=== PATIENT | male | born 1965 | race Two or more races ===

== ENCOUNTER 2017-12-30 08:37 | Outpatient (RCR) | payer BC, SELFPAY | END 2018-01-30 13:06 | disposition home or self-care (01) | LOC: PT 08:37 | PROVIDERS: PCP Internal Medicine; Visit Provider Internal Medicine Cardiovascular Disease | DX: I25.10 Atherosclerotic heart disease of native coronary artery without angina pectoris (principal) | CPT/HCPCS: 93798 ==

== ENCOUNTER → 2018-02-10 20:12 | Outpatient (CLI) | payer OTHER, BC, SELFPAY | PROVIDERS: PCP Family Medicine; Visit Provider Nurse Practitioner Family | DX: G47.33 Obstructive sleep apnea (adult) (pediatric) (principal) | CPT/HCPCS: 95810 ==

== ENCOUNTER 2020-03-23 11:42 | Emergency (ER) | payer BC, SELFPAY ==
[2020-03-23 12:08] VITALS: BP 168/99; PULSE 62; RESP 14; TEMP 36.8; O2SAT 97; BMI 33.5
--- NOTE | 2020-03-23 12:21 | HMH.EDUTC ---
[facility] [place] Disposition Clinical Impression: Otitis media Qualifiers: Otitis media type: unspecified Laterality: right Qualified Code(s): H66.91 - Otitis media, unspecified, right ear Disposition: Home, Self-Care Condition on Discharge: Good Instructions: Middle Ear Infections (Alternative Therapy), Middle Ear Infection, Amoxicillin Additional Instructions: *Monitor Temp, Over the counter Motrin or Tylenol as directed/as needed Tylenol every 4 hours and Motrin every 6 hours (as long as your family doctor has told you that you can take it) for fever or pain. and straight to ER if unable to lower temp less than 101.0 after medication given *Warm salt water gargles may help to soothe the throat *Throat Lozenges *Warm fluids like tea with honey may help to soothe the throat *Sleep elevated *Humidifier/Vaporizer Follow up IMMEDIATELY for new or worsening symptoms or no Noticeable improvement over the next 48-72 hours. 911 for difficulty breathing or swallowing Prescriptions: Amoxicillin [Amoxicillin 875MG Tab] 875 mg PO Q12H #20 tab Transmission Status: Pending to [facility] Referrals: Provider,Referral, [Primary Care Provider] - Forms: Work/School Release Time of Disposition: 12:24 Medical Decision Making - Aries Inquiry Pt receiving controlled substance: No Aries was queried for this patient: No Vital Signs: 03/23/20 12:08 Temperature 98.3 F Temperature Source Oral Pulse Rate [Right Brachial] 62 Respiratory Rate 14 Blood Pressure [Right Arm] 168/99 H Blood Pressure Mean [Right Arm] 122 Blood Pressure Source [Right Arm] Automatic Cuff Blood Pressure Position [Right Arm] Sitting 02 Sat by Pulse Oximetry 97 Oxygen Delivery Method Room Air [facility] [place] HPI - General Stated complaint: ear pain Time Seen by Provider: 03/23/20 12:21 Mode of Arrival: Ambulatory Source of Information: Patient Limitations: No Limitations Description of Symptoms (Recalled from Triage Doc. by RN): PATIENT C/O PAIN AND ITCHING IN RIGHT EAR THAT STARTED YESTERDAY HEENT Symptoms (Recalled from RN notes): Yes Resp Symptoms (Recalled from RN notes): No Skin Symptoms (Recalled from RN notes): No MS Symptoms (Recalled from RN notes): No Functional Status (Recalled from RN notes): wnl - History of Present Illness Provider Complaint: Patient states that he has been having pain and pressure in his right ear that has continued to get worse over the last week now having throbbing like pain in his right ear and hurts when he moves his mouth - Related Data Home Medications Medication Instructions Recorded Confirmed aspirin 325 mg tablet,delayed 325 mg PO DAILY 30 Days #30 11/13/17 03/23/20 release atorvastatin 80 mg tablet 80 mg PO DAILY 30 Days #30 tab 11/13/17 03/23/20 lisinopril 20 mg tablet 20 mg PO DAILY 30 Days #30 tab 11/13/17 03/23/20 metoprolol tartrate 50 mg tablet 50 mg PO DAILY 90 Days #180 tab 03/31/18 03/23/20 Amlodipine Besylate [Amlodipine 5 mg PO DAILY 03/23/20 03/23/20 5mg tab] Previous Rx's Medication Instructions Recorded Amoxicillin [Amoxicillin 875MG 875 mg PO Q12H #20 tab 03/23/20 Tab] Allergies Allergy/AdvReac Type Severity Reaction Status Date / Time No Known Allergies Allergy Verified 03/23/20 12:15 - Worker's Comp Is this a Worker's Comp case?: No [facility] History - Hepatitis A Screen Drug use history?: No High risk sexual behaviors?: No History of sexually transmitted infection?: No Currently employed?: No Childcare worker?: No Do you have indoor plumbing?: Yes Do you have electricity?: Yes Attestation statement:: This patient has been screened for Hepatitis A risk factors. I have reviewed the patient's past medical history: Yes Medical History: Reports:: Coronary Artery Disease, Hyperlipidemia, Hypertension Other Medical History: Reports: Other Comment: ZEB Other Surgeries: Yes: CABG - Social History Smoking Status: Former smoker Tobacco Type: cigarett
[2020-03-23 12:24] VITALS: BP 168/99; PULSE 62; RESP 14; TEMP 36.8; O2SAT 97
== END 2020-03-23 12:28 | disposition home or self-care (01) ==
PROVIDERS: Emergency Provider Nurse Practitioner
DX: H66.91 Otitis media, unspecified, right ear (principal); I10 Essential (primary) hypertension; E78.5 Hyperlipidemia, unspecified; I25.10 Atherosclerotic heart disease of native coronary artery without angina pectoris; Z87.891 Personal history of nicotine dependence; Z79.899 Other long term (current) drug therapy
CPT/HCPCS: 99201

== ENCOUNTER 2021-05-03 09:50 | Emergency (ER) | payer BC, SELFPAY ==
[2021-05-03 11:00] VITALS: BP 143/99; PULSE 95; RESP 19; TEMP 37; O2SAT 97; BMI 32.9
--- NOTE | 2021-05-03 11:34 | HMH.EDUTC ---
[facility] [place] Clinical Impression: Strep throat Disposition: Home, Self-Care Condition on Discharge: Good Instructions: DI for Strep Throat, Strep Throat, Acute Bronchitis, Cefdinir Additional Instructions: Monitor Temp, Over the counter Motrin or Tylenol as directed/as needed Tylenol every 4 hours and Motrin every 6 hours (as long as your family doctor has told you that you can take it) for fever or pain. and straight to ER if unable to lower temp less than 101.0 after medication given *Warm salt water gargles may help to soothe the throat *Throat Lozenges *Warm fluids like tea with honey may help to soothe the throat *Sleep elevated *Humidifier/Vaporizer *If you did not take Penicillin shot or was unable to, start taking antibiotic immediately and make sure that you take it for the FULL length of time although you should start to feel better in 24-48 hours *change toothbrush and toothpaste 24-48 hours after starting to take antibiotics so you do not reinfect yourself Monitor Temp. Tylenol and/or Ibuprofen as needed. ER if fever is no less than 101 despite alternating Tylenol and Ibuprofen * Encourage fluids, water, Gatorade, powerade, pedialyte if /toddler/or child *Cold fluids, popsicles and ice cream may feel good on his throat Follow up IMMEDIATELY for new or worsening symptoms or no Noticeable improvement over the next 48-72 hours. 911 for difficulty breathing or swallowing Prescriptions: predniSONE [Deltasone 10mg tablet] 10 mg PO BID 5 Days #10 tab Transmission Status: Pending to [facility] #[id number] Fluticasone Propionate [Flonase 50mcg nasal spray 16gm] 1 spr NS DAILY #1 each Transmission Status: Pending to [facility] #[id number] Cefdinir [Omnicef 300mg Capsule] 300 mg PO BID #20 cap Transmission Status: Pending to [facility] #[id number] Referrals: Provider,Referral, MD [Primary Care Provider] - As needed Forms: Work/School Release Time of Disposition: 11:51 Medical Decision Making - Aries Inquiry Pt receiving controlled substance: No Aries was queried for this patient: No Vital Signs: 05/03/21 11:00 Temperature 98.6 F Temperature Source Oral Pulse Rate [Left Brachial] 95 H Respiratory Rate 19 Blood Pressure [Left Arm] 143/99 H Blood Pressure Mean [Left Arm] 113 Blood Pressure Source [Left Arm] Automatic Cuff Blood Pressure Position [Left Arm] Sitting 02 Sat by Pulse Oximetry 97 Oxygen Delivery Method Room Air - Lab Data Lab results reviewed: Yes: I reviewed the patient's lab results. Lab Results 05/03/21 11:29: Strep Scn Rapid Clinic Positive A [facility] [place] - General Stated complaint: sore throat, cough, congestion, body aches Time Seen by Provider: 05/03/21 11:34 Mode of Arrival: Ambulatory Source of Information: Patient Limitations: No Limitations Description of Symptoms (Recalled from Triage Doc. by RN): PATIENT C/O CONGESTION, BODY ACHES, RUNNY NOSE, AND PRODUCTIVE COUGH WITH LUNG PAIN HEENT Symptoms (Recalled from RN notes): Yes Resp Symptoms (Recalled from RN notes): Yes Skin Symptoms (Recalled from RN notes): No MS Symptoms (Recalled from RN notes): No Functional Status (Recalled from RN notes): WNL - History of Present Illness Provider Complaint: Patient states that he has been having some sinus congestion and pain with drianage in the back of his throat State that he has had some pressure behind his eyes and at times he will cough and every now and then he will cough up some whitish colored mucous States that he felt a little feverish yesterday but wasnt having a temp so today when he was still not feeling well he came in - Related Data Home Medications Medication Instructions Recorded Confirmed aspirin 325 mg tablet,delayed 325 mg PO DAILY 30 Days #30 11/13/17 03/23/20 release atorvastatin 80 mg tablet 80 mg PO DAILY 30 Days #30 tab 11/13/17 03/23/20 lisinopril 20 mg tablet 20 mg PO DAILY 30 Days #30 tab 11/13/17 03/23/20 metoprol
[2021-05-03 11:43] LABS: UTC Strep Screen (Rapid) Positive (Negative)
[2021-05-03 11:47] VITALS: BP 143/99; PULSE 95; RESP 19; TEMP 37; O2SAT 97
== END 2021-05-03 11:58 | disposition home or self-care (01) ==
PROVIDERS: Emergency Provider Nurse Practitioner
DX: J02.0 Streptococcal pharyngitis (principal); I10 Essential (primary) hypertension; E78.5 Hyperlipidemia, unspecified
CPT/HCPCS: 87880; 99202; G0463

== ENCOUNTER 2021-08-27 10:44 | Emergency (ER) | payer BC, SELFPAY ==
[2021-08-27 12:45] VITALS: BP 141/86; PULSE 76; RESP 18; TEMP 37; O2SAT 99; BMI 29.0
[2021-08-27 12:58] VITALS: BP 141/86; PULSE 76; RESP 18; TEMP 37; O2SAT 99
--- NOTE | 2021-08-27 13:10 | HMH.EDUTC ---
[facility] [place] Clinical Impression: Otitis media Qualifiers: Otitis media type: suppurative Chronicity: acute Laterality: bilateral Recurrence: non-recurrent Spontaneous tympanic membrane rupture: without spontaneous rupture Qualified Code(s): H66.003 - Acute suppurative otitis media without spontaneous rupture of ear drum, bilateral Disposition: Home, Self-Care Condition on Discharge: Good Instructions: Middle Ear Infection Additional Instructions: Drink plenty of fluids. Take tylenol or ibuprofen for pain or fever. Take the medications as directed. Follow up with your regular doctor. GO TO THE ER FOR ANY WORSENING SYMPTOMS Prescriptions: Amoxicillin/Potassium Clav [Amox-Clav 875-125 mg Tablet] 1 tab PO BID #20 tab Transmission Status: Pending to [facility] #[id number] methylPREDNISolone [Medrol] 4 mg PO DIRECTED 6 Days #21 packet Transmission Status: Pending to [facility] #[id number] Referrals: Jarrett Espino JR, MD [Primary Care Provider] - Forms: Work/School Release Time of Disposition: 13:32 Medical Decision Making - Medical Records Medical records reviewed: No: I reviewed the patient's medical records. - Aries Inquiry Pt receiving controlled substance: No Vital Signs: 08/27/21 12:45 08/27/21 12:58 Temperature 98.6 F 98.6 F Temperature Source Oral Pulse Rate 76 Pulse Rate [Right Brachial] 76 Respiratory Rate 18 18 Blood Pressure 141/86 H Blood Pressure [Right Arm] 141/86 H Blood Pressure Mean [Right Arm] 104 Blood Pressure Source [Right Arm] Automatic Cuff Blood Pressure Position [Right Arm] Sitting 02 Sat by Pulse Oximetry 99 Oxygen Delivery Method Room Air - Lab Data Lab results reviewed: No: I reviewed the patient's lab results. [facility] [place]PI - General Stated complaint: right ear pain Time Seen by Provider: 08/27/21 13:14 Mode of Arrival: Ambulatory Source of Information: Patient Limitations: No Limitations Description of Symptoms (Recalled from Triage Doc. by RN): PATIENT C/O RIGHT EAR PAIN SINCE THIS MORNING HEENT Symptoms (Recalled from RN notes): Yes Resp Symptoms (Recalled from RN notes): No Skin Symptoms (Recalled from RN notes): No MS Symptoms (Recalled from RN notes): No Functional Status (Recalled from RN notes): WNL - History of Present Illness Provider Complaint: He c/o bilateral ear pain (left worse than right) for the past 2 days. He gets ear infections and sinus infections frequently this time of year. He refuses a covid-19 test or a strep test. - Related Data Home Medications Medication Instructions Recorded Confirmed aspirin 325 mg tablet,delayed 325 mg PO DAILY 30 Days #30 11/13/17 08/27/21 release atorvastatin 80 mg tablet 80 mg PO DAILY 30 Days #30 tab 11/13/17 08/27/21 lisinopril 20 mg tablet 20 mg PO DAILY 30 Days #30 tab 11/13/17 08/27/21 metoprolol tartrate 50 mg tablet 50 mg PO DAILY 90 Days #180 tab 03/31/18 08/27/21 Previous Rx's Medication Instructions Recorded Amoxicillin/Potassium Clav 1 tab PO BID #20 tab 08/27/21 [Amox-Clav 875-125 mg Tablet] methylPREDNISolone [Medrol] 4 mg PO DIRECTED 6 Days #21 08/27/21 packet Allergies Allergy/AdvReac Type Severity Reaction Status Date / Time No Known Allergies Allergy Verified 03/23/20 12:15 - Worker's Comp Is this a Worker's Comp case?: No [facility] History - Hepatitis A Screen Drug use history?: No High risk sexual behaviors?: No History of sexually transmitted infection?: No Currently employed?: No Childcare worker?: No Do you have indoor plumbing?: Yes Do you have electricity?: Yes Attestation statement:: This patient has been screened for Hepatitis A risk factors. I have reviewed the patient's past medical history: Yes Medical History: Reports:: Coronary Artery Disease, Hyperlipidemia, Hypertension Other Medical History: Reports: Other Comment: ZEB Other Surgeries: Yes: CABG - Social History Smoking Status: Form
== END 2021-08-27 13:38 | disposition home or self-care (01) ==
PROVIDERS: Emergency Provider Nurse Practitioner Family; PCP Pediatrics
DX: H66.003 Acute suppurative otitis media without spontaneous rupture of ear drum, bilateral (principal); I10 Essential (primary) hypertension; E78.5 Hyperlipidemia, unspecified; I25.10 Atherosclerotic heart disease of native coronary artery without angina pectoris; Z79.899 Other long term (current) drug therapy
CPT/HCPCS: 99212; G0463

== ENCOUNTER 2022-05-08 14:14 | Emergency (ER) | payer BC, SELFPAY ==
[2022-05-08 14:57] VITALS: BP 122/86; PULSE 67; RESP 18; TEMP 36.9; O2SAT 96; BMI 41.1
--- NOTE | 2022-05-08 15:06 | EXP.UTC ---
Discharge Plan Disposition Patient Disposition: Home, Self-Care Condition: Good Prescriptions Prescriptions: New benzonatate [benzonatate] 100 mg capsule 100 mg PO TIDP PRN (Reason: Cough) Qty: 30 0RF methylprednisolone 4 mg Tablets,Dose Pack 4 mg PO DIRECTED Qty: 21 0RF amoxicillin-pot clavulanate 875-125 mg Tablet 1 tab PO Q12H Qty: 20 0RF ciprofloxacin-dexamethasone 0.3-0.1 % Drops,Suspension 2 drp Ear-Right BID 7 Days Qty: 1 0RF No Action lisinopril 20 mg tablet 20 mg PO DAILY 30 Days Qty: 30 atorvastatin 80 mg tablet 80 mg PO DAILY 30 Days Qty: 30 aspirin 325 mg tablet,delayed release (DR/EC) 325 mg PO DAILY 30 Days Qty: 30 metoprolol tartrate 50 mg tablet 50 mg PO DAILY 90 Days Qty: 180 methylprednisolone 4 MG tablets,dose pack 4 mg PO DIRECTED 6 Days Qty: 21 0RF amoxicillin-pot clavulanate 1 EACH tablet 1 tab PO BID Qty: 20 0RF Referrals Follow up/Referrals: Beatriz Peña MD [Referring] - See instructions Provider,MD Marie [Primary Care Provider] - See instructions Activity Restrictions/Add. Instructions Additional Instructions/Restrictions: Drink plenty of fluids. Take tylenol or ibuprofen for pain or fever. Take the medications as directed. Follow up with your regular doctor. GO TO THE ER FOR ANY WORSENING SYMPTOMS Clinical Impressions Clinical Impression: Otitis media Qualifiers: Otitis media type: suppurative Chronicity: acute Laterality: right Recurrence: non-recurrent Spontaneous tympanic membrane rupture: with spontaneous rupture Qualified Code(s): H66.011 - Acute suppurative otitis media with spontaneous rupture of ear drum, right ear Instructions Patient Instructions: Middle Ear Infection Discharge ED Provider: Ty Armstrong [facility] [place] General Stated complaint: RT ear pain Mode of Arrival: Ambulatory Source of Information: Patient Limitations: No Limitations Time Seen by Provider: 05/08/22 14:52 Description of Symptoms (Recalled from Triage Doc. by RN): pt comes in with c/o right ear pain. pt was seen in [facility] in [place] on 04/27 and was given amox. pt states he has been taking it but the pain is not going away. HEENT Symptoms (Recalled from RN notes): Yes Resp Symptoms (Recalled from RN notes): No Skin Symptoms (Recalled from RN notes): No MS Symptoms (Recalled from RN notes): No Functional Status (Recalled from RN notes): n/a History of Present Illness Provider Complaint: He states that for the past 5 days he has had right ear pain. 2 days ago his ear started draining tannish discharge. He has a history of getting ear infections and then his ear drum bursts. Related Data Home Medications Medication Instructions Recorded Confirmed aspirin 325 mg tablet,delayed 325 mg PO DAILY Heart disease 30 11/13/17 08/27/21 release days ##30 atorvastatin 80 mg tablet 80 mg PO DAILY Cholesterol 30 days 11/13/17 08/27/21 #30 tabs lisinopril 20 mg tablet 20 mg PO DAILY Hypertension 30 11/13/17 08/27/21 days #30 tabs metoprolol tartrate 50 mg tablet 50 mg PO DAILY Hypertension 90 03/31/18 08/27/21 days #180 tabs Previous Rx's Medication Instructions Recorded amoxicillin 875 mg-potassium 1 tab PO BID #20 tabs 08/27/21 clavulanate 125 mg tablet methylprednisolone 4 mg tablets in 4 mg PO DIRECTED 6 days #21 08/27/21 a dose pack packets amoxicillin 875 mg-potassium 1 tab PO Q12H #20 tabs 05/08/22 clavulanate 125 mg tablet benzonatate 100 mg capsule 100 mg PO TIDP PRN Cough #30 caps 05/08/22 ciprofloxacin 0.3 %-dexamethasone 2 drp Ear-Right BID 7 days #1 ea 05/08/22 0.1 % ear drops,suspension methylprednisolone 4 mg tablets in 4 mg PO DIRECTED #21 tabs 05/08/22 a dose pack Allergies Allergy/AdvReac Type Severity Reaction Status Date / Time No Known Allergies Allergy Verified 05/08/22 14:58 Worker's Comp Is this a Worker's Comp case?: No PFSH PFSH Social History (Reviewed
[2022-05-08 15:28] VITALS: BP 122/86; PULSE 67; RESP 18; TEMP 36.9
== END 2022-05-08 15:33 | disposition home or self-care (01) ==
PROVIDERS: Emergency Provider Nurse Practitioner Family
DX: H66.011 Acute suppurative otitis media with spontaneous rupture of ear drum, right ear (principal)
CPT/HCPCS: 96372; 99212; G0463; J0696

== ENCOUNTER 2023-03-12 09:41 | Emergency (ER) | payer BC, SELFPAY ==
[2023-03-12 09:50] VITALS: BP 146/84; PULSE 62; RESP 18; TEMP 36.8; O2SAT 99; BMI 34.8
--- NOTE | 2023-03-12 09:58 | XR_ITS ---
FINAL REPORT CLINICAL HISTORY: pain x 1 month, no known trauma FINDINGS: AP, oblique and lateral views of the left foot were obtained. There is no prior exam for comparison. There is no acute fracture or dislocation. The joint spaces are preserved. Soft tissues are normal. IMPRESSION: No acute osseous abnormality of the left foot. Reviewed, Interpreted and Dictated by Sridevi Barrientos MD Transcribed by Jeromy Hannon Authenticated and . [facility]
--- NOTE | 2023-03-12 10:09 | EXP.UTC ---
Discharge Plan Disposition Patient Disposition: Home, Self-Care Condition: Good Prescriptions Prescriptions: New methylprednisolone [Methylpred DP] 4 mg tablets,dose pack 4 mg PO DIRECTED 6 Days Qty: 6 0RF Rx Instructions: as directed No Action lisinopril 20 mg tablet 20 mg PO DAILY 30 Days Qty: 30 atorvastatin 80 mg tablet 80 mg PO DAILY 30 Days Qty: 30 aspirin 325 mg tablet,delayed release (DR/EC) 325 mg PO DAILY 30 Days Qty: 30 metoprolol tartrate 50 mg tablet 50 mg PO DAILY 90 Days Qty: 180 benzonatate [benzonatate] 100 mg capsule 100 mg PO TIDP PRN (Reason: Cough) Qty: 30 0RF methylprednisolone 4 mg Tablets,Dose Pack 4 mg PO DIRECTED Qty: 21 0RF amoxicillin-pot clavulanate 875-125 mg Tablet 1 tab PO Q12H Qty: 20 0RF ciprofloxacin-dexamethasone 0.3-0.1 % Drops,Suspension 2 drp Ear-Right BID 7 Days Qty: 1 0RF methylprednisolone 4 MG tablets,dose pack 4 mg PO DIRECTED 6 Days Qty: 21 0RF amoxicillin-pot clavulanate 1 EACH tablet 1 tab PO BID Qty: 20 0RF Referrals Follow up/Referrals: Provider,Referral, MD [Primary Care Provider] - See instructions Activity Restrictions/Add. Instructions Additional Instructions/Restrictions: Weight bearing as tolerated rest Ice with cold pack for 20 minutes remove may repeat for comfort every hour Ibuprofen every 6 hours as needed for pain or inflammation. If needs something more you can take Tylenol every 4 hours as needed as long as her primary care has told he was okayed for you to take both. If improving any do not need to follow-up you can bring begin exercising 2-3 weeks after injury. Follow-up immediately if new or worsening symptoms or no noticeable improvement over the next 3-5 days. call podiatry- for appointment Clinical Impressions Clinical Impression: Bone spur of foot Instructions Patient Instructions: DI for Foot Pain Discharge ED Provider: Toi ([facility] [place] General Stated complaint: Lt foot pain, no accident Mode of Arrival: Ambulatory Source of Information: Patient Limitations: No Limitations Time Seen by Provider: 03/12/23 10:09 Description of Symptoms (Recalled from Triage Doc. by RN): Pt was seen in [facility] last week. They stated that is was a bone spur. This pain started a month ago and is in lots of pain. This is the left bottom of the foot. He rates his pain 6/10. HEENT Symptoms (Recalled from RN notes): No Resp Symptoms (Recalled from RN notes): No Skin Symptoms (Recalled from RN notes): No MS Symptoms (Recalled from RN notes): Yes Functional Status (Recalled from RN notes): n/a History of Present Illness Provider Complaint: 58 yr old male presents for left foot pain. Pt states he was seen in [facility] last week. They stated that is was a bone spur. pt states the pain started a month ago and is getting worse. He rates his pain 6/10. Related Data Home Medications Medication Instructions Recorded Confirmed aspirin 325 mg tablet,delayed 325 mg PO DAILY Heart disease 30 11/13/17 08/27/21 release days ##30 atorvastatin 80 mg tablet 80 mg PO DAILY Cholesterol 30 days 11/13/17 08/27/21 #30 tabs lisinopril 20 mg tablet 20 mg PO DAILY Hypertension 30 11/13/17 08/27/21 days #30 tabs metoprolol tartrate 50 mg tablet 50 mg PO DAILY Hypertension 90 03/31/18 08/27/21 days #180 tabs Previous Rx's Medication Instructions Recorded amoxicillin 875 mg-potassium 1 tab PO BID #20 tabs 08/27/21 clavulanate 125 mg tablet methylprednisolone 4 mg tablets in 4 mg PO DIRECTED 6 days #21 08/27/21 a dose pack packets amoxicillin 875 mg-potassium 1 tab PO Q12H #20 tabs 05/08/22 clavulanate 125 mg tablet benzonatate 100 mg capsule 100 mg PO TIDP PRN Cough #30 caps 05/08/22 ciprofloxacin 0.3 %-dexamethasone 2 drp Ear-Right BID 7 days #1 ea 05/08/22 0.1 % ear drops,suspension methylprednisolone 4 mg tablets in 4 mg PO DIRECTED #21 tabs 05/08/22
[2023-03-12 10:31] VITALS: BP 146/84; PULSE 62; RESP 18; TEMP 36.8; O2SAT 99
== END 2023-03-12 10:31 | disposition home or self-care (01) ==
PROVIDERS: Emergency Provider Nurse Practitioner Family
DX: M77.52 Other enthesopathy of left foot and ankle (principal); Z87.891 Personal history of nicotine dependence
CPT/HCPCS: 73630; 99212; 99214; G0463

== ENCOUNTER 2023-04-09 09:59 | Outpatient (RCR) | payer BC, SELFPAY | END 2023-04-09 11:00 | disposition home or self-care (01) | LOC: PT 09:59 | PROVIDERS: Visit Provider Podiatrist | DX: M79.672 Pain in left foot (principal); M25.775 Osteophyte, left foot | CPT/HCPCS: 97760 ==

== ENCOUNTER 2023-11-01 10:28 | Emergency (ER) | payer BC, SELFPAY ==
--- NOTE | 2023-11-01 10:59 | EXP.UTC ---
Discharge Plan Disposition Patient Disposition: Home, Self-Care Condition: Good Prescriptions Prescriptions: New methylprednisolone 4 mg Tablets,Dose Pack 4 mg PO DIRECTED 6 Days Qty: 21 0RF Rx Instructions: Take 1 pack as directed for 6 days No Action amlodipine 10 mg tablet 10 mg PO DAILY lisinopril 20 mg tablet 20 mg PO DAILY 30 Days Qty: 30 atorvastatin 80 mg tablet 80 mg PO DAILY 30 Days Qty: 30 aspirin 325 mg tablet,delayed release (DR/EC) 325 mg PO DAILY 30 Days Qty: 30 metoprolol tartrate 50 mg tablet 50 mg PO DAILY 90 Days Qty: 180 Referrals Follow up/Referrals: Jarrett Espino JR, MD [Primary Care Provider] - See instructions Activity Restrictions/Add. Instructions Additional Instructions/Restrictions: Go home and rest. Take the oral medications as directed. Follow up with your regular doctor. GO TO THE ER FOR ANY WORSENING SYMPTOMS OR CONCERN, ESPECIALLY BOWEL OR BLADDER ISSUES, SADDLE AREA NUMBNESS, FEVER, ETC Clinical Impressions Clinical Impression: Hip pain, Knee pain, Ankle pain, Osteoarthritis Stand Alone Forms Stand Alone Forms: Work/School Release Instructions Patient Instructions: DI for Ankle Pain, DI for Knee Pain, DI for Hip Pain Discharge ED Provider: Ty Armstrong [facility] General Stated complaint: pain in hips knees and ankles Time Seen by Provider: 11/01/23 10:59 History of Present Illness Provider Complaint: He states that he has been having low back pain, bilateral hip pain, bilateral knee pain, and bilateral ankle pain for the past several weeks. He denies any injury. Related Data Home Medications Medication Instructions Recorded Confirmed aspirin 325 mg tablet,delayed 325 mg PO DAILY Heart disease 30 11/13/17 11/01/23 release days ##30 atorvastatin 80 mg tablet 80 mg PO DAILY Cholesterol 30 days 11/13/17 11/01/23 #30 tabs lisinopril 20 mg tablet 20 mg PO DAILY Hypertension 30 11/13/17 11/01/23 days #30 tabs metoprolol tartrate 50 mg tablet 50 mg PO DAILY Hypertension 90 03/31/18 11/01/23 days #180 tabs amlodipine 10 mg tablet 10 mg PO DAILY 04/09/23 11/01/23 Previous Rx's Medication Instructions Recorded methylprednisolone 4 mg tablets in 4 mg PO DIRECTED 6 days #21 tabs 11/01/23 a dose pack Allergies Allergy/AdvReac Type Severity Reaction Status Date / Time No Known Allergies Allergy Verified 11/01/23 11:11 [facility] Disclaimer: The information contained in this section may have been updated after the patient was seen, as this information can be updated by other users. Surgical History History of heart bypass surgery Social History Smoking Status: Former smoker tobacco type: cigarettes alcohol intake: never counseling provided: none substance use type: denies use current occupational status: other Travel in the last 8 weeks: None ROS Obtained: Yes All systems reviewed & no additional complaints except as documented Constitutional Constitutional: Denies chills and Denies fever(s) Eyes Eyes: Denies eye discharge ENT Ears, Nose, Mouth, and Throat: Denies dizziness, Denies otalgia, Denies neck pain and Denies sore throat Cardiovascular Cardiovascular: Denies chest pain Respiratory Respiratory: Denies shortness of breath, Denies chest congestion, Denies cough, Denies stridor and Denies wheezing Gastrointestinal Gastrointestingal: Denies nausea or vomiting Musculoskeletal Musculoskeletal: Reports as per HPI, Denies back pain and Denies neck pain Integumentary/Breasts Skin/Breast: Denies rash Neurologic Neurologic: Denies dizziness and Denies paresthesias Allergic/Immunologic Allergic/Immunologic: Denies wheezing Physical Exam General General appearance: alert and in no apparent distress Head Head exam: atraumatic, normocephalic and normal inspection Eye Eye exam: Present normal appearance, PERRL and EOMI ENT ENT exam: Present normal exam, normal oropharynx, mucous membranes moist, TM's normal bilaterally and normal external ear exam Neck Neck exam: Present normal inspection, full ROM and trachea midline; Absent meningismus or lymphadenopathy Chest Chest inspection: Present normal inspection and symmetric chest wall rise; Absent tenderness Respiratory Respiratory exam: Present normal lung sounds bilaterally; Absent respiratory distress Cardiovascular Cardiovascular exam: Present regular rate and normal rhythm; Absent JVD Abdominal Exam Abdominal exam: Present soft and normal bowel sounds; Absent distention, tenderness or guarding Extremities Exam Extremities exam: Present normal inspection, full ROM and normal capillary refill; Absent calf tenderness Back Exam Back exam: Present normal inspection; Absent tenderness Neurological Exam Neurological exam: Present alert and oriented X3 Psychiatric Psychiatric exam: Present normal affect and normal mood Skin Skin exam: Present warm, dry, intact and normal color Lymphatic Lymphatic Findings: no adenopathy Medical Decision Making Medical Records Medical records reviewed: No I reviewed the patient's medical records. Aries Inquiry Pt receiving controlled substance: No
[2023-11-01 11:00] VITALS: BP 145/97; PULSE 65; RESP 18; TEMP 36.9; O2SAT 96; BMI 34.8
--- NOTE | 2023-11-01 11:19 | XR_ITS ---
PROCEDURE INFORMATION: Exam: XR Left Knee Exam date and time: 11/01/2023 11:29 AM Age: 58 years old Clinical indication: Pain; Knee; Left TECHNIQUE: Imaging protocol: Radiologic exam of the left knee. Views: 3 views. COMPARISON: CR XR ANKLE LT MIN 3V 11/01/2023 11:29 AM FINDINGS: Bones/joints: Minimal osteoarthritis most evident medial joint compartment. No acute injury is seen. Soft tissues: Normal. Vasculature: Moderate atherosclerosis. Other findings: Small effusion. IMPRESSION: 1. Minimal osteoarthritis most evident medial joint compartment. No acute injury is seen. 2. Small effusion.
--- NOTE | 2023-11-01 11:19 | XR_ITS ---
PROCEDURE INFORMATION: Exam: XR Right Knee Exam date and time: 11/01/2023 11:29 AM Age: 58 years old Clinical indication: Pain; Knee; Right TECHNIQUE: Imaging protocol: Radiologic exam of the right knee. Views: 3 views. COMPARISON: CR XR ANKLE RT MIN 3V 11/01/2023 11:29 AM FINDINGS: Bones/joints: Minimal effusion without fracture or subluxation. Soft tissues: Normal. IMPRESSION: Minimal effusion without fracture or subluxation.
--- NOTE | 2023-11-01 11:19 | XR_ITS ---
PROCEDURE INFORMATION: Exam: XR Right Hip Exam date and time: 11/01/2023 11:29 AM Age: 58 years old Clinical indication: Pelvic pain TECHNIQUE: Imaging protocol: Radiologic exam of the right hip. Views: 2 or 3 views hip with pelvis when performed. COMPARISON: No relevant prior studies available. FINDINGS: Bones/joints: Minimal degenerative change with otherwise unremarkable right hip and AP view of the pelvis. Soft tissues: Unremarkable. IMPRESSION: Minimal degenerative change with otherwise unremarkable right hip and AP view of the pelvis.
--- NOTE | 2023-11-01 11:19 | XR_ITS ---
PROCEDURE INFORMATION: Exam: XR Left Hip Exam date and time: 11/01/2023 11:29 AM Age: 58 years old Clinical indication: Pelvic pain TECHNIQUE: Imaging protocol: Radiologic exam of the left hip. Views: 2 or 3 views hip with pelvis when performed. COMPARISON: No relevant prior studies available. FINDINGS: Bones/joints: Unremarkable left hip. Soft tissues: Unremarkable. IMPRESSION: Unremarkable left hip.
--- NOTE | 2023-11-01 11:20 | XR_ITS ---
PROCEDURE INFORMATION: Exam: XR Left Ankle Exam date and time: 11/01/2023 11:29 AM Age: 58 years old Clinical indication: Pain; Ankle; Left TECHNIQUE: Imaging protocol: Radiologic exam of the left ankle. Views: 3 or more views. COMPARISON: CR XR FOOT LT MIN 3V 03/12/2023 10:06 AM FINDINGS: Bones/joints: Small plantar calcaneal spur. No fracture or subluxation. Good preservation of articular cartilage spaces. Soft tissues: Equivocal soft tissue swelling. IMPRESSION: No fracture or subluxation. Good preservation of articular cartilage spaces.
--- NOTE | 2023-11-01 11:20 | XR_ITS ---
PROCEDURE INFORMATION: Exam: XR Right Ankle Exam date and time: 11/01/2023 11:29 AM Age: 58 years old Clinical indication: Pain; Ankle; Right TECHNIQUE: Imaging protocol: Radiologic exam of the right ankle. Views: 3 or more views. COMPARISON: CR XR KNEE RT 3V 11/01/2023 11:29 AM FINDINGS: Bones/joints: Small plantar calcaneal spur. No fracture or subluxation. Good preservation of articular cartilage spaces. Soft tissues: Equivocal soft tissue swelling. IMPRESSION: No fracture or subluxation. Good preservation of articular cartilage spaces.
[2023-11-01 12:13] VITALS: BP 145/97; PULSE 65; RESP 18; TEMP 36.9; O2SAT 96
== END 2023-11-01 12:13 | disposition home or self-care (01) ==
PROVIDERS: Emergency Provider Nurse Practitioner Family; PCP Pediatrics
DX: M25.551 Pain in right hip (principal); M25.552 Pain in left hip; M25.561 Pain in right knee; M25.562 Pain in left knee; M25.571 Pain in right ankle and joints of right foot; M25.572 Pain in left ankle and joints of left foot; M54.50 Low back pain, unspecified; M19.90 Unspecified osteoarthritis, unspecified site
CPT/HCPCS: 73502; 73562; 73610; 99212; 99214; G0463

== ENCOUNTER 2024-01-24 12:02 | Emergency (ER) | payer BC, SELFPAY ==
[2024-01-24 12:10] VITALS: BP 139/81; PULSE 65; RESP 21; TEMP 36.8; O2SAT 96; BMI 32.8
--- NOTE | 2024-01-24 12:24 | EXP.UTC ---
Discharge Plan Disposition Patient Disposition: Home, Self-Care Condition: Good Prescriptions Prescriptions: New amoxicillin 500 mg tablet 500 mg PO BID 10 Days Qty: 20 0RF No Action amlodipine 10 mg tablet 10 mg PO DAILY lisinopril 20 mg tablet 20 mg PO DAILY 30 Days Qty: 30 atorvastatin 80 mg tablet 80 mg PO DAILY 30 Days Qty: 30 aspirin 325 mg tablet,delayed release (DR/EC) 325 mg PO DAILY 30 Days Qty: 30 metoprolol tartrate 50 mg tablet 50 mg PO DAILY 90 Days Qty: 180 Referrals Follow up/Referrals: Brit Davis APRN [Primary Care Provider] - See instructions Activity Restrictions/Add. Instructions Additional Instructions/Restrictions: Start antibiotic as soon as possible and be sure to take as ordered for full length of time even though he should start feeling better in 24-48 hours. Tylenol or Motrin as needed for pain or fever Encourage fluids, water, Gatorade, Powerade, Pedialyte if /toddler/child Warm compresses often helps when placed over ear Return immediately for new or worsening symptoms no noticeable improvement in 48-72 hours and in 10-14 days to ensure the ears are return to baseline. Follow-up with primary care Clinical Impressions Clinical Impression: Otitis media Instructions Patient Instructions: Middle Ear Infection Print Language Print Language: Yi Discharge ED Provider: Toi ([facility] [place] General Stated complaint: pain at back of neck Mode of Arrival: Ambulatory Source of Information: Patient Limitations: No Limitations Time Seen by Provider: 01/24/24 12:25 Description of Symptoms (Recalled from Triage Doc. by RN): PATIENT C/O INTERMITTEN PAIN BEHIND LEFT EAR SINCE 12/29/23 HEENT Symptoms (Recalled from RN notes): No Resp Symptoms (Recalled from RN notes): No Skin Symptoms (Recalled from RN notes): No MS Symptoms (Recalled from RN notes): No Functional Status (Recalled from RN notes): WNL History of Present Illness Provider Complaint: 58 yr old male presents for pain that comes and goes behind left ear since 12/29/23 and now more freq Related Data Home Medications ?Medication ?Instructions ?Recorded ?Confirmed aspirin 325 mg tablet,delayed 325 mg PO DAILY Heart disease 30 11/13/17 01/24/24 release days ##30 atorvastatin 80 mg tablet 80 mg PO DAILY Cholesterol 30 days 11/13/17 01/24/24 #30 tabs lisinopril 20 mg tablet 20 mg PO DAILY Hypertension 30 11/13/17 01/24/24 days #30 tabs metoprolol tartrate 50 mg tablet 50 mg PO DAILY Hypertension 90 03/31/18 01/24/24 days #180 tabs amlodipine 10 mg tablet 10 mg PO DAILY 04/09/23 01/24/24 Previous Rx's ?Medication ?Instructions ?Recorded amoxicillin 500 mg tablet 500 mg PO BID 10 days #20 tabs 01/24/24 Allergies Allergy/AdvReac Type Severity Reaction Status Date / Time No Known Allergies Allergy Verified 11/01/23 11:11 Worker's Comp Is this a Worker's Comp case?: No [facility] Disclaimer: The information contained in this section may have been updated after the patient was seen, as this information can be updated by other users. Surgical History , [employer]) History of heart bypass surgery Social History , [employer]) Smoking Status: Former smoker tobacco type: cigarettes alcohol intake: never counseling provided: none substance use type: denies use current occupational status: other Travel in the last 8 weeks: None ROS Obtained: Yes All systems reviewed & no additional complaints except as documented Constitutional Constitutional: Reports system reviewed and no additional complaints, except as documented Eyes Eyes: Reports system reviewed and no additional complaints, except as documented ENT Ears, Nose, Mouth, and Throat: Reports system reviewed and no additional complaints, except as documented, Reports as per HPI and Reports otalgia Cardiovascular Cardiovascular: Reports system reviewed and no additional complaints, except as documented Respiratory Respiratory: Reports system reviewed and no additional complaints, except as documented Gastrointestinal Gastrointestingal: Reports system reviewed and no additional complaints, except as documented Musculoskeletal Musculoskeletal: Reports system reviewed and no additional complaints, except as documented Integumentary/Breasts Skin/Breast: Reports system reviewed and no additional complaints, except as documented Neurologic Neurologic: Reports system reviewed and no additional complaints, except as documented Endocrine Endocrine: Reports system reviewed and no additional complaints, except as documented Hematologic/Lymphatic Henatologic/Lymphatic: Reports system reviewed and no additional complaints, except as documented Allergic/Immunologic Allergic/Immunologic: Reports system reviewed and no additional complaints, except as documented Physical Exam General General appearance: alert and in no apparent distress Head Head exam: atraumatic Eye Eye exam: Present normal appearance and PERRL ENT ENT exam: Present mucous membranes moist Expanded ENT Exam TM/Canal exam: Left TM: erythema and loss of landmarks Respiratory Respiratory exam: Present normal lung sounds bilaterally Cardiovascular Cardiovascular exam: Present regular rate and normal rhythm Neurological Exam Neurological exam: Present alert and oriented X3 Skin Skin exam: Present warm and intact Medical Decision Making Medical Records Medical records reviewed: Yes I reviewed the patient's medical records. Aries Inquiry Pt receiving controlled substance: No Aries was queried for this patient: No Vital Signs: 01/24/24 12:10 Temperature 98.2 F Temperature Source Oral Pulse Rate [Left Brachial] 65 Respiratory Rate 21 Blood Pressure [Left Arm] 139/81 Blood Pressure Mean [Left Arm] 100 Blood Pressure Source [Left Arm] Automatic Cuff Blood Pressure Position [Left Arm] Sitting 02 Sat by Pulse Oximetry 96 Oxygen Delivery Method Room Air
[2024-01-24 12:30] VITALS: BP 139/81; PULSE 65; RESP 21; TEMP 36.8; O2SAT 96
== END 2024-01-24 12:33 | disposition home or self-care (01) ==
PROVIDERS: Emergency Provider Nurse Practitioner Family; PCP Nurse Practitioner Family
DX: H66.92 Otitis media, unspecified, left ear (principal); H92.02 Otalgia, left ear
CPT/HCPCS: 99212; 99214; G0463